=== PATIENT | male | born 1955 | race Two or more races ===

== ENCOUNTER 2022-05-10 14:29 | Observation (INO) | payer MEDICARE, OTHER ==
[2022-05-10] MEDS ORDERED: ACETAMINOPHEN 1000 MG/100 ML BAG IVPB ONE (15:19)
[2022-05-10] MEDS ORDERED: LACTATED RINGERS SOLUTION 1000 ML INFUS.BAG IV ONE (15:20)
[2022-05-10] MEDS ORDERED: FAMOTIDINE 20 MG/50 ML IVPB 20 MG/50 ML MG IVPB ONE ×2 (15:20→15:39)
[2022-05-10] MEDS ORDERED: morphine CARPU-JECT 4 MG/1 ML DISP.SYRIN IVPUSH ONE (15:38)
[2022-05-10] MEDS ORDERED: ACETAMINOPHEN INJECTION 100 ML IVPB ONE (15:39)
[2022-05-10 15:45] LABS: BASO % 0.6 % (0-2.0); HEMATOCRIT 40.6 % (35.4-49); LYMPH % 27.4 % (8-40); MCH 32.7 pg (25.7-33.7); MCHC 34.5 g/dl (32.0-35.9); MEAN CELL VOLUME 94.8 fl (80-96); MEAN PLT VOLUME 7.4 fl (7.5-11.1); MONO % 9.8 % (3.8-10.2); NEUT % 58.2 % (42.8-82.8); PLATELET COUNT 300 10^3/uL (134-434); RBC 4.28 M/mm3 (4.00-5.60); RDW 12.9 % (11.9-15.9); WHITE BLOOD COUNT 3.5 K/mm3 (4.0-10.0)
[2022-05-10] MEDS ORDERED: morphine SULFATE 4 MG/ML VIAL ONE (15:48)
[2022-05-10 15:52] LABS: INR 1.09 (0.83-1.09); PROTHROMBIN TIME (PATIENT) 12.6 SEC (9.7-13.0)
[2022-05-10 16:14] LABS: BLOOD UREA NITROGEN 14.3 mg/dL (7-18); CALCIUM 9.3 mg/dL (8.5-10.1)
[2022-05-10 16:17] LABS: CREATININE 0.7 mg/dL (0.55-1.3)
[2022-05-10 16:20] LABS: BILIRUBIN,TOTAL 0.6 mg/dL (0.2-1); TOT PROT 7.6 g/dl (6.4-8.2)
[2022-05-10] MEDS ORDERED: CEFTRIAXONE 1 GM in DEXTROSE 5%-WATER - 100 ML IVPB ONE (19:19)
[2022-05-10] MEDS ORDERED: SODIUM CHLORIDE 0.9% 500 ML INFUS.BAG IV ONE (19:22)
[2022-05-10] MEDS ORDERED: CEFTRIAXONE 1 GM/50 ML BAG ONE (20:03)
[2022-05-10] MEDS ORDERED: SODIUM PHOSPHATE/NA BIPHOS 133 ML ENEMA RC ONE (22:52)
[2022-05-10] MEDS: POLYETHYLENE GLYCOL (HEALTHYLAX) 3350 17 GM PACKET PO SCH (23:55)
[2022-05-10] MEDS: DEXTROSE 5%-NORMAL SALINE 1,000 ML IV SCH (23:56)
[2022-05-11 00:05] VITALS: BMI 23.6
[2022-05-11] MEDS: POLYETHYLENE GLYCOL (HEALTHYLAX) 3350 17 GM PACKET PO SCH ×3 (06:09→21:35)
[2022-05-11] MEDS ORDERED: PATIENT'S OWN MEDICATION (NON-FORMULARY) (Lipase/Protease/Amylase [Zenpep Dr 40,000 Unit C PO SCH (07:15)
[2022-05-11 08:45] LABS: HEMATOCRIT 36.9 % (35.4-49); HEMOGLOBIN 12.8 GM/dL (11.7-16.9); MCH 32.8 pg (25.7-33.7); MCHC 34.7 g/dl (32.0-35.9); MEAN CELL VOLUME 94.6 fl (80-96); MEAN PLT VOLUME 7.6 fl (7.5-11.1); PLATELET COUNT 277 10^3/uL (134-434); RDW 12.8 % (11.9-15.9); WHITE BLOOD COUNT 3.5 K/mm3 (4.0-10.0)
[2022-05-11 09:06] LABS: CALCIUM 8.5 mg/dL (8.5-10.1)
[2022-05-11 09:07] LABS: ALBUMIN 3.3 g/dl (3.4-5.0); BLOOD UREA NITROGEN 8.8 mg/dL (7-18)
[2022-05-11 09:10] LABS: CREATININE 0.6 mg/dL (0.55-1.3); PHOSPHOROUS 3.3 mg/dL (2.5-4.9)
[2022-05-11 09:11] LABS: BILIRUBIN,TOTAL 0.8 mg/dL (0.2-1); TOT PROT 6.3 g/dl (6.4-8.2)
[2022-05-11] MEDS ORDERED: SODIUM PHOSPHATE/NA BIPHOS 133 ML ENEMA RC ONE (10:44)
[2022-05-11] MEDS: PANTOPRAZOLE 40 MG TABLET PO SCH (11:11)
[2022-05-11] MEDS: TAMSULOSIN HCL 0.4 MG CAP PO SCH (11:11)
[2022-05-11] MEDS: ENOXAPARIN NA (PORCINE) 40 MG/0.4 ML DISP.SYRIN SQ SCH (11:12)
[2022-05-11] MEDS: CEFTRIAXONE 1 GM in DEXTROSE 5%-WATER - 50 ML IVPB SCH (12:46)
[2022-05-11] MEDS: DEXTROSE 5%-NORMAL SALINE 1,000 ML IV SCH (18:22)
[2022-05-12] MEDS: DEXTROSE 5%-NORMAL SALINE 1,000 ML IV SCH (02:11)
[2022-05-12] MEDS: POLYETHYLENE GLYCOL (HEALTHYLAX) 3350 17 GM PACKET PO SCH ×2 (05:27→13:45)
[2022-05-12 09:47] LABS: HEMATOCRIT 38.8 % (35.4-49); HEMOGLOBIN 13.6 GM/dL (11.7-16.9); MCHC 35.1 g/dl (32.0-35.9); MEAN CELL VOLUME 94.1 fl (80-96); MEAN PLT VOLUME 7.4 fl (7.5-11.1); PLATELET COUNT 281 10^3/uL (134-434); RBC 4.12 M/mm3 (4.00-5.60); WHITE BLOOD COUNT 4.3 K/mm3 (4.0-10.0)
[2022-05-12 10:00] LABS: CHLORIDE 110 mmol/L (98-107); SODIUM 138 mmol/L (136-145)
[2022-05-12 10:08] LABS: BLOOD UREA NITROGEN 6.8 mg/dL (7-18); CALCIUM 8.9 mg/dL (8.5-10.1)
[2022-05-12 10:09] LABS: ALBUMIN 3.6 g/dl (3.4-5.0); ANION GAP 1 MMOL/L (8-16); CO2 27 mmol/L (21-32); GLUCOSE,RANDOM 128 mg/dL (74-106)
[2022-05-12 10:12] LABS: BILIRUBIN,TOTAL 0.7 mg/dL (0.2-1); CREATININE 0.9 mg/dL (0.55-1.3); IRON SERUM 93 ug/dL (50-175); SGOT/AST 78 U/L (15-37); SGPT/ALT 114 U/L (13-61)
[2022-05-12 10:13] LABS: ALK PHOS 74 U/L (45-117); TOT PROT 7.1 g/dl (6.4-8.2); TOTAL IRON BINDING CAPACITY 346 ug/dL (250-450)
[2022-05-12 10:23] LABS: ERYTHROCYTE SEDIMENTATION RATE 10 mm/hr (0-20)
[2022-05-12] MEDS: ENOXAPARIN NA (PORCINE) 40 MG/0.4 ML DISP.SYRIN SQ SCH (10:34)
[2022-05-12] MEDS: TAMSULOSIN HCL 0.4 MG CAP PO SCH (10:34)
[2022-05-12] MEDS: PANTOPRAZOLE 40 MG TABLET PO SCH (10:35)
[2022-05-12] MEDS: CEFTRIAXONE 1 GM in DEXTROSE 5%-WATER - 50 ML IVPB SCH (10:38)
[2022-05-12 10:42] VITALS: BP 134/72; PULSE 56; RESP 16; TEMP 98.5
[2022-05-15 11:10] LABS: PROTEIN S, FREE 53 % (61-136)
== END 2022-05-12 15:04 | disposition home or self-care (01) ==
LOC: JER 14:29 → JERBED 19:25 → UNDOADMOB 19:25 → OBSVTOIN 22:41 → INTOOBSV 22:41 → J5S 23:07 → JERBED 23:07 → J5S 05-11 18:00
PROVIDERS: ADMIT Internal Medicine; ATTEND Internal Medicine
PROC: 3E03329 Introduction of Other Anti-infective into Peripheral Vein, Percutaneous Approach (ICD-10-PCS; principal; 2022-05-11)
PROC: 3E033NZ Introduction of Analgesics, Hypnotics, Sedatives into Peripheral Vein, Percutaneous Approach (ICD-10-PCS; 2022-05-11)
PROC: 3E033GC Introduction of Other Therapeutic Substance into Peripheral Vein, Percutaneous Approach (ICD-10-PCS; 2022-05-11)
PROC: 3E0337Z Introduction of Electrolytic and Water Balance Substance into Peripheral Vein, Percutaneous Approach (ICD-10-PCS; 2022-05-11)
DX: B18.2 Chronic viral hepatitis C (principal); R63.4 Abnormal weight loss; R10.9 Unspecified abdominal pain; R19.7 Diarrhea, unspecified; N40.0 Benign prostatic hyperplasia without lower urinary tract symptoms; B19.20 Unspecified viral hepatitis C without hepatic coma; G89.29 Other chronic pain
CPT/HCPCS: 0241U-QW; 36415; 71045-TC-FY; 74174-TC; 80053; 82105; 82272; 82378; 82607; 82728; 83516; 83540; 83550; 83605; 83631; 83690; 83735; 83993; 84100; 84153; 85025; 85027; 85303; 85305; 85306; 85610; 85651; 85730; 86140; 86301; 86850; 86900; 86901; 87040; 87324; 87449; 87529; 93005; 93010; 96365; 96367; 96375; 99285-25; G0378; Q9967